=== PATIENT | male | born 1955 | race Caucasian/White ===

== ENCOUNTER 2023-01-30 22:31 | Emergency (ER) | payer OTHER ==
[2023-01-30] MEDS ORDERED: Lidocaine 1% PF 5 ML VIAL ONE (23:54)
[2023-01-31] MEDS ORDERED: Bacitracin 1 PK ONE (00:25)
== END 2023-01-31 00:35 | disposition home or self-care (01) ==
LOC: CSHERS 22:31
DX: S61.012A Laceration without foreign body of left thumb without damage to nail, initial encounter (principal); I10 Essential (primary) hypertension; E78.5 Hyperlipidemia, unspecified; W27.0XXA Contact with workbench tool, initial encounter
CPT/HCPCS: 12001